=== PATIENT | female | born 1975 | race Caucasian/White ===

== ENCOUNTER → 2018-07-21 | Outpatient (CLI) | payer OTHER | LOC: EMCIMAGING 08:04 | PROVIDERS: ATTEND Orthopaedic Surgery | DX: S82.015A Nondisplaced osteochondral fracture of left patella, initial encounter for closed fracture (principal); S83.512A Sprain of anterior cruciate ligament of left knee, initial encounter; S83.422A Sprain of lateral collateral ligament of left knee, initial encounter; M94.262 Chondromalacia, left knee; M25.462 Effusion, left knee | CPT/HCPCS: 7372PN ==